=== PATIENT | male | born 1955 ===

== ENCOUNTER → 2025-02-05 | Day surgery (SDC) | payer OTHER ==
[2025-01-28 13:18] LABS: INR 1.12
[2025-01-28 13:21] VITALS: BP 149/87
[2025-01-28 13:45] LABS: ALT/SGPT 69.0 U/L (12-78); AST/SGOT 34.0 U/L (15-37); BILIRUBIN TOTAL 1.92 mg/dL (0.3-1.2); BUN CREA RATIO 18.0 (7.0-25.0); CREATININE SERUM 0.73 mg/dL (0.70-1.30); GFR 105.91; GLOBULINA 3.2 G/DL (2.4-3.5); GLUCOSE FASTING 78.0 mg/dL (65-100); OSMOLALITY SERUM 282.0 MOSM/KG (275-295)
[~2025-02-05] VITALS: Ht 167.6 cm; Wt 73.5 kg
[~2025-02-05] MED LIST: BUPIVACAINE HCL/MPF 0.5% 30ML VIAL ONE; CEFTRIAXONE SODIUM 2,000 MG VIAL ONE; COZAAR50 MG PO; DIBUCAINE 30 GM TUBE ONE; HEMOSTATIC MATRIX 1 KIT KIT TOP ONE; LIDOCAINE HCL 1%/EPINEPHRINE 20ML VIAL IJ ONE; METRONIDAZOLE/SODIUM CHLORIDE 500 MG/100 ML PIGGYBACK IV ONE; OXYCODONE HCL5 MG PO; POVIDONE-IODINE 118 ML BOTT TOP ONE; TAMSULOSIN HCL 0.4 MG CAP PO ONE
== END | disposition home or self-care (01) ==
LOC: ADM 01-28 12:15 → CIR.AMB 06:00
PROVIDERS: ATTEND Surgery
DX: K64.2 Third degree hemorrhoids (principal); K64.4 Residual hemorrhoidal skin tags; K62.5 Hemorrhage of anus and rectum